=== PATIENT | female | born 1940 | race Caucasian/White ===

== ENCOUNTER → 2019-08-24 10:03 | Outpatient (BNVA) | payer MEDICARE, SELFPAY | PROVIDERS: PCP Nurse Practitioner Family; Referring Provider Nurse Practitioner Family; Visit Provider Psychiatry & Neurology Neurology | DX: G20 Parkinson's disease (principal); G47.00 Insomnia, unspecified; R29.818 Other symptoms and signs involving the nervous system | CPT/HCPCS: 99205 ==

== ENCOUNTER → 2019-10-05 12:41 | Outpatient (BNVA) | payer MEDICARE, SELFPAY | PROVIDERS: PCP Nurse Practitioner Family; Referring Provider Nurse Practitioner Family; Visit Provider Psychiatry & Neurology Neurology | DX: G20 Parkinson's disease (principal); G25.0 Essential tremor; G47.00 Insomnia, unspecified | CPT/HCPCS: 99213 ==

== ENCOUNTER → 2020-02-01 12:25 | Outpatient (BNVA) | payer MEDICARE, SELFPAY | PROVIDERS: PCP Nurse Practitioner Family; Referring Provider Nurse Practitioner Family; Visit Provider Psychiatry & Neurology Neurology | DX: G20 Parkinson's disease (principal); G47.00 Insomnia, unspecified; R29.818 Other symptoms and signs involving the nervous system | CPT/HCPCS: 99213 ==

== ENCOUNTER → 2021-01-25 12:19 | Outpatient (BNVA) | payer MEDICARE, SELFPAY | PROVIDERS: PCP Nurse Practitioner Family; Referring Provider Nurse Practitioner Family; Visit Provider Psychiatry & Neurology Neurology | DX: G20 Parkinson's disease (principal); G47.00 Insomnia, unspecified; R29.818 Other symptoms and signs involving the nervous system; G25.0 Essential tremor | CPT/HCPCS: 99213 ==

== ENCOUNTER → 2021-03-27 13:08 | Outpatient (BNVA) | payer MEDICARE, SELFPAY | PROVIDERS: PCP Nurse Practitioner Family; Referring Provider Nurse Practitioner Family; Visit Provider Psychiatry & Neurology Neurology | DX: G20 Parkinson's disease (principal); G47.00 Insomnia, unspecified; R29.818 Other symptoms and signs involving the nervous system; G25.0 Essential tremor | CPT/HCPCS: 99213 ==

== ENCOUNTER → 2021-05-22 14:32 | Outpatient (BNVA) | payer MEDICARE, SELFPAY | PROVIDERS: PCP Nurse Practitioner Family; Visit Provider Psychiatry & Neurology Neurology | DX: G20 Parkinson's disease (principal); G47.00 Insomnia, unspecified; R29.818 Other symptoms and signs involving the nervous system; G25.0 Essential tremor | CPT/HCPCS: 99213 ==

== ENCOUNTER 2021-10-19 09:09 | Outpatient (CLI) | payer MEDICARE, SELFPAY ==
--- NOTE | 2021-10-19 08:45 | DI.RAD_ITS ---
Exam(s) XR HAND LT COMPLETE EXAM: XR HAND LT COMPLETE CLINICAL HISTORY: L hand injury. TECHNIQUE: 2D digital imaging was performed of the left hand. Three views were obtained. AP, later al and oblique views were obtained. COMPARISON: DX XR LEFT HAND ROUTINE 3+VIEWS from 10/09/2021 FINDINGS: BONES: There has been no change in alignment of the displaced fracture involving the proximal phalanx of the left 4th finger or the mildly displaced fracture involving the proximal phalanx of the left 5 th finger. No new fracture is identified. No bony destructive lesion is seen. The bones are osteope nimesh. JOINTS: No dislocation present. Moderately severe degenerative changes are seen in the hand and wrist . SOFT TISSUE: Normal. IMPRESSION: Stable left 4th and 5th finger fractures. DATA REPOSITORY: RADIATION DOSE DELIVERED:
== END 2021-10-19 09:10 | disposition home or self-care (01) ==
LOC: DIORS 09:09
PROVIDERS: PCP Nurse Practitioner Family; Referring Provider Nurse Practitioner Family; Visit Provider Physician Assistant
DX: S62.615A Displaced fracture of proximal phalanx of left ring finger, initial encounter for closed fracture; S62.617A Displaced fracture of proximal phalanx of left little finger, initial encounter for closed fracture; W10.9XXA Fall (on) (from) unspecified stairs and steps, initial encounter
CPT/HCPCS: 99214; 73130

== ENCOUNTER 2021-10-26 10:56 | Outpatient (CLI) | payer MEDICARE, SELFPAY ==
--- NOTE | 2021-10-26 09:45 | DI.RAD_ITS ---
Exam(s) XR HAND LT COMPLETE EXAM: XR HAND LT COMPLETE CLINICAL HISTORY: F/U FINGER FRACTURES. TECHNIQUE: 2D digital imaging was performed of the left hand. Three views were obtained. AP, later al and oblique views were obtained. COMPARISON: CR XR HAND LT COMPLETE from 10/19/2021 FINDINGS: BONES: There has been no change in alignment of the fractures involving the proximal phalanges of the left ring and little fingers. No bony destructive lesion is seen. The bones are osteopenic. JOINTS: No dislocation present. Marked degenerative changes are seen in the hand and wrist. SOFT TISSUE: Normal. IMPRESSION: Stable fractures of the 4th and 5th fingers. DATA REPOSITORY: RADIATION DOSE DELIVERED:
== END 2021-10-26 10:57 | disposition home or self-care (01) ==
LOC: DIORS 10:56
PROVIDERS: PCP Nurse Practitioner Family; Referring Provider Nurse Practitioner Family; Visit Provider Student in an Organized Health Care Education/Training Program
DX: S62.615A Displaced fracture of proximal phalanx of left ring finger, initial encounter for closed fracture (principal); S62.617A Displaced fracture of proximal phalanx of left little finger, initial encounter for closed fracture; X58.XXXA Exposure to other specified factors, initial encounter
CPT/HCPCS: 99214; 73130

== ENCOUNTER → 2021-11-05 09:46 | Outpatient (BNVA) | payer MEDICARE, SELFPAY | PROVIDERS: PCP Nurse Practitioner Family; Referring Provider Nurse Practitioner Family; Visit Provider Student in an Organized Health Care Education/Training Program | DX: X58.XXXA Exposure to other specified factors, initial encounter (principal); S62.617A Displaced fracture of proximal phalanx of left little finger, initial encounter for closed fracture; S62.615A Displaced fracture of proximal phalanx of left ring finger, initial encounter for closed fracture | CPT/HCPCS: 99213 ==

== ENCOUNTER 2021-11-20 14:38 | Outpatient (CLI) | payer MEDICARE, SELFPAY | END 2021-11-20 14:39 | disposition home or self-care (01) | LOC: DIORS 14:38 | PROVIDERS: PCP Nurse Practitioner Family; Referring Provider Nurse Practitioner Family; Visit Provider Physician Assistant | DX: W19.XXXA Unspecified fall, initial encounter (principal); S62.617A Displaced fracture of proximal phalanx of left little finger, initial encounter for closed fracture; S62.615A Displaced fracture of proximal phalanx of left ring finger, initial encounter for closed fracture | CPT/HCPCS: 99212 ==

== ENCOUNTER → 2022-01-07 13:42 | Outpatient (BNVA) | payer MEDICARE, SELFPAY | PROVIDERS: PCP Nurse Practitioner Family; Referring Provider Nurse Practitioner Family; Visit Provider Psychiatry & Neurology Neurology | DX: G25.0 Essential tremor (principal); F41.9 Anxiety disorder, unspecified; G47.00 Insomnia, unspecified; R26.89 Other abnormalities of gait and mobility; R29.818 Other symptoms and signs involving the nervous system | CPT/HCPCS: 99214 ==

== ENCOUNTER 2022-10-15 19:11 | Outpatient (REF) | payer MEDICARE, SELFPAY | END 2022-10-15 19:12 | disposition home or self-care (01) | LOC: NCHCN 19:11 | PROVIDERS: PCP Nurse Practitioner Family; Visit Provider Nurse Practitioner Family | DX: R30.0 Dysuria (principal) | CPT/HCPCS: 87086 ==